=== PATIENT | female | born 1945 | race Two or more races ===

== ENCOUNTER → 2016-11-07 | Outpatient (CLI) | payer MEDICARE, OTHER ==
[~2016-11-07] MED LIST: ATIVAN0.5 MG PO; DIAZEPAM PO; MACROBID100 MG PO; PROTONIX PO; ZESTORETIC 20-1 EAC1 PO; ZOFRAN PO
--- NOTE | ~2016-11-07 | US10 ---
[id number] [facility] [address]. [place], [place] [address] [id number] O MR#: [id number] Acc #: [id number] NAME: YUMIKO JORDAN : 1945 SEX: F STUDY DATE/TIME: 11/07/2016 9:47 UNIT: [facility]US ROOM: STUDY DESCRIPTION: US Aorta Complete Attending Physician: Chan Vila M.D. Referring Physician: Chan Vila M.D. Ordering Physician: Chan Vila M.D. Primary Care Physician: Chan Vila M.D. MEDICAL IMAGING REPORT This report is preliminary unless electronic signature is present EXAM Abdominal aorta ultrasound. INDICATIONS Longstanding hypertension. Abdominal aortic aneurysm screening. PROCEDURE Valverde-scale, color Doppler and spectral imaging of abdominal aorta. COMPARISON None. FINDINGS Proximal aorta measures 2.5 cm. Mid aorta measures 1.7 cm and distal aorta measures 1.5 cm. Right and left common iliac arteries measure 6-7 mm. IMPRESSION No evidence for abdominal aortic aneurysm. Dictated by... Esequiel Wasserman M.D. THIS IS AN ELECTRONICALLY VERIFIED REPORT Esequiel Wasserman M.D. at 11/08/2016 6:50 AM ORLIN/armando TD: 11/07/2016 13:07 JOB #: [id number] MEDICAL IMAGING REPORT Page 1 of 1 COPY
== END | disposition home or self-care (01) ==
LOC: CGUS 09:22
DX: Z13.6 Encounter for screening for cardiovascular disorders (principal)
CPT/HCPCS: 76770